=== PATIENT | female | born 1985 | race Caucasian/White ===

== ENCOUNTER → 2017-10-07 | Outpatient (CLI) | payer MEDICAID, SELFPAY | PROVIDERS: Visit Provider Nurse Practitioner Obstetrics & Gynecology | DX: O26.841 Uterine size-date discrepancy, first trimester (principal) | CPT/HCPCS: 76817 ==

== ENCOUNTER → 2017-12-17 14:46 | Outpatient (CLI) | payer MEDICAID, SELFPAY ==
--- NOTE | 2017-12-17 14:51 | US_ITS ---
US OB /maternal detail: INDICATION: ITS.REASON: 20WK+ ANATOMY SCAN-OB COMPLETE ORDERING PHYSICIAN: Kayode Bernal MD PATIENT AGE: 32 years TECHNIQUE: ultrasound transabdominal scanning. COMPARISON: No previous relevant studies. FINDINGS: Single viable intrauterine gestation. started in breech but moved to cephalic position. Placenta: Posterior placenta grade 1. There is adequate amount fluid. The cervix appears satisfactory. Closed and measuring 3 cm in length. Complete survey performed and was unremarkable on the submitted images as in PACS. No discrete anomalies identified on survey imaging by technologist. Active fetus. Three-vessel cord with satisfactory umbilical cord insertion. 4- chamber heart noted. Survey of brain & ventricles. Face and neck survey unremarkable. Diaphragm and chest views unremarkable. Abdomen: Both kidneys noted and unremarkable. Stomach noted and satisfactory. Spine: Survey of the spine satisfactory with no anomalies identified nor imaged. The spine is not well demonstrated due to patient body habitus and the location. Recommend repeating exam in 2-3 weeks to see if this finding can be better imaged Both arms and legs noted. Amniotic Fluid: Adequate. Maternal adnexa: No significant findings. Measurements: Average ultrasound age 21w4d. Gestational Age 20w3d. Estimated due date by ultrasound age 0704/25/2018. Estimated weight 439 grams. This is 96 percentile based on last menstrual period. BPD = 21w4d OFD = 22w1d HC = 21w1d AC = 21w5d FL = 21w6d Heart Rate = 150 bpm Cerebellum = not obtained Humerus = 23w1d HC/AC is 1.13 ( 1.09-1.26). CI is 76% (70-86%). FL/BPD is 72%. FL/AC is 22%. IMPRESSION: IMPRESSION: Live intrauterine gestation with average ultrasound age of 21 weeks 4 days. Estimated due date by ultrasound is 04/25/2018 No obvious anomalies however, the spine is not well delineated. Recommend patient return in 2-3 weeks for repeat imaging. Please see above for detail
== END ==
PROVIDERS: PCP Physician Assistant; Visit Provider Nurse Practitioner Obstetrics & Gynecology
DX: Z36.0 Encounter for antenatal screening for chromosomal anomalies (principal)
CPT/HCPCS: 76811

== ENCOUNTER → 2018-01-14 12:52 | Outpatient (CLI) | payer MEDICAID, SELFPAY ==
--- NOTE | 2018-01-14 12:55 | US_ITS ---
US OB /maternal detail: INDICATION: ITS.REASON: US OB Complete ORDERING PHYSICIAN: Kayode Bernal MD PATIENT AGE: 32 years TECHNIQUE: ultrasound transabdominal scanning/. mw COMPARISON: Recent ultrasound 12/17/2017 w/ ultrasound age 21 week 4 day on that scan FINDINGS: Single viable intrauterine gestation. Breech position Currently. Placenta: Anterior and wraps laterally towards posterior wall. Placenta grade 1. There is adequate amount fluid. The cervix appears long closed satisfactory measuring up to nearly 5 cm in length. Complete additionally detailed survey imaging performed and was unremarkable on the submitted images as in PACS. No discrete anomalies identified on additional detail survey imaging by technologist. Active fetus.Three-vessel cord with satisfactory umbilical cord insertion. Survey of brain & ventricles. In posterior fossa unremarkable Face and neck survey unremarkable. Nasion intact Diaphragm and chest views unremarkable. 4- chamber heart imaged. Additional cardiac Cine loop included. LVOT specifically imaged as well Additional imaging of the spine was performed and these obtained images unremarkable. Abdomen: Both kidneys noted and unremarkable. Stomach noted and satisfactory. Spine: Survey of the spine satisfactory with no anomalies identified nor imaged. Both arms and legs noted. Appear to be a male fetus Amniotic Fluid: Adequate.Maternal adnexa: No significant findings encountered. Measurements: Average ultrasound age 25 weeks 6 day. Gestational Age 24 week 3 day. Based on LMP of 07/27/2017 Estimated due date by ultrasound age 704/23/2018. Estimated weight 852 grams. +/- 124g BPD = 25 week 3 day OFD = 26 week 5 day HC = 25 weeks 6 day AC = 25 weeks 6 day FL = 25 week 6 day Heart Rate = 153 BPM Cerebellum = 24 week 5 day Humerus = 25 week 3 day HC/AC = 1.11.(1.09-1.26.) CI = 73%.(70-86%). FL/BPD is 75%. FL/AC is 22%. IMPRESSION: 25 weeks 6 day average ultrasound age Breech Position. Anterior placenta, with lateral wrap extending posteriorly .Active fetus Anatomical survey of unremarkable & WNL Appropriate progression of growth
== END ==
PROVIDERS: PCP Physician Assistant; Visit Provider Nurse Practitioner Obstetrics & Gynecology
DX: Z36.0 Encounter for antenatal screening for chromosomal anomalies (principal)
CPT/HCPCS: 76811

== ENCOUNTER 2018-02-26 12:02 | Outpatient (CLI) | payer MEDICAID, SELFPAY ==
[2018-02-26 12:22] VITALS: BP 142/81; PULSE 90; RESP 18; TEMP 36.6; O2SAT 97; BMI 40.4
== END 2018-02-26 14:48 | disposition home or self-care (01) ==
LOC: OBOUT 12:03 → OB 12:03
PROVIDERS: PCP Nurse Practitioner Family; Visit Provider Nurse Practitioner Obstetrics & Gynecology
DX: O60.03 Preterm labor without delivery, third trimester (principal); Z3A.30 30 weeks gestation of pregnancy
CPT/HCPCS: 59025; 96360; 96361; 96372

== ENCOUNTER 2018-02-27 12:07 | Outpatient (CLI) | payer MEDICAID, SELFPAY ==
[2018-02-27 12:30] VITALS: BP 119/66; PULSE 90; RESP 18; TEMP 36.7; O2SAT 100; BMI 37.6
== END 2018-02-27 12:47 | disposition home or self-care (01) ==
LOC: OBOUT 12:08 → OB 12:09
PROVIDERS: PCP Nurse Practitioner Family; Visit Provider Nurse Practitioner Obstetrics & Gynecology
DX: Z34.90 Encounter for supervision of normal pregnancy, unspecified, unspecified trimester (principal); O47.00 False labor before 37 completed weeks of gestation, unspecified trimester
CPT/HCPCS: 96372

== ENCOUNTER 2018-03-07 17:25 | Outpatient (CLI) | payer MEDICAID, SELFPAY ==
[2018-03-07 17:38] VITALS: BMI 37.8
[2018-03-07 17:52] LABS: Microscopic, Urine URINE MICROSCOPIC (MICROSCOPIC)
[2018-03-07 17:54] LABS: Appearance,Urine CLOUDY (Clear); Bilirubin,Urine Negative (Negative); Blood, Urine Negative (Negative); Color,Urine YELLOW (Yellow); Glucose,Urine (UA) Negative (Negative); Ketones,Urine Negative (Negative); Leukocyte Esterase,Urine TRACE (Negative); Nitrate,Urine Negative (Negative); PH,Urine 5.5 (5.0-8.5); Protein,Urine Negative (Negative); Specific Gravity, Urine >= 1.030 (1.005-1.030)
[2018-03-07 18:00] VITALS: BP 119/76; PULSE 95; RESP 20; TEMP 36.7; O2SAT 97; BMI 37.8
[2018-03-07 18:02] LABS: Bacteria,Urine 4+ /lpf; Mucus,Urine 4+ /lpf; WBC,Urine 20-50 #/hpf (0-3)
[2018-03-07 18:12] LABS: Fetal Membrane Rupture (Rapid) Negative (Negative)
== END 2018-03-07 22:15 | disposition home or self-care (01) ==
LOC: OBOUT 17:27 → OB 17:27
PROVIDERS: PCP Nurse Practitioner Family; Visit Provider Obstetrics & Gynecology
DX: O26.893 Other specified pregnancy related conditions, third trimester (principal); Z3A.31 31 weeks gestation of pregnancy; R10.9 Unspecified abdominal pain
CPT/HCPCS: 59025; 81001; 84112; 87086; 96360; 96367; 96372; J0290

== ENCOUNTER → 2018-03-11 10:10 | Outpatient (CLI) | payer MEDICAID, SELFPAY ==
--- NOTE | 2018-03-11 10:12 | US_ITS ---
US OB biophysical profile: Umbilical artery S/D ratio, umbilical artery Doppler Indication: Large for gestational age ITS.REASON: US OB- LGA ORDERING PHYSICIAN: Eli Nieto MD PATIENT AGE: 32 years FINDINGS: There is a single live fetus present in the cephalic presentation. The following parameters are obtained: Average ultrasound age is 33w4d. Estimated due date by ultrasound is 04/25/2018. Estimated weight is 2275g. This is 82nd percentile based on last menstrual period BPD: 33w0d OFD: 32w1d HC: 32w3d AC: 33w6d FL: 34w5d heart rate: 133 bpm. HC/AC: 0.98 ( 0.96-1.17) Cephalic index: 79% (70-86%) FL/BPD: 82% (71-87%) FL/AC: 23% (20-24%) Amniotic fluid index: 17 cm Qualitative AFV: 2 breathing movements: 2 Gross body movements: 2 Tone: 2 Biophysical profile score: 8/8 Doppler evaluation of the umbilical artery: SD ratio: 2.6 Resistive index: 0.61 No obvious anomalies evident. Placenta: Posterior and fundal, grade 1 Cervix: Appears closed and measures 4 cm IMPRESSION: Single live intrauterine gestation with an average ultrasound age of 33 weeks 4 days. Estimated weight is 2275 g which is 82nd percentile. Biophysical profile 8 of 8 Unremarkable Doppler evaluation of the umbilical artery
== END ==
PROVIDERS: PCP Nurse Practitioner Family; Visit Provider Obstetrics & Gynecology
DX: O36.63X0 Maternal care for excessive fetal growth, third trimester, not applicable or unspecified (principal)
CPT/HCPCS: 76819

== ENCOUNTER 2018-03-15 17:32 | Outpatient (CLI) | payer MEDICAID, SELFPAY ==
[2018-03-15 17:39] VITALS: BP 105/63; PULSE 77; RESP 18; TEMP 36.7; O2SAT 99; BMI 41.2
[2018-03-15 17:48] LABS: Appearance,Urine SL CLOUDY (Clear); Bilirubin,Urine Negative (Negative); Blood, Urine Negative (Negative); Color,Urine YELLOW (Yellow); Glucose,Urine (UA) Negative (Negative); Ketones,Urine Negative (Negative); Leukocyte Esterase,Urine Negative (Negative); Microscopic, Urine URINE MICROSCOPIC (MICROSCOPIC); Nitrate,Urine Negative (Negative); Protein,Urine Negative (Negative); Specific Gravity, Urine >= 1.030 (1.005-1.030); Urobilinogen,Urine 0.2 EU/dl (0.2)
[2018-03-15 17:54] LABS: Amorphous Sediment,Urine Trace /lpf; Mucus,Urine 4+ /lpf
== END 2018-03-15 20:20 | disposition home or self-care (01) ==
LOC: OBOUT 17:34 → OB 17:35
PROVIDERS: PCP Nurse Practitioner Obstetrics & Gynecology; Visit Provider Obstetrics & Gynecology
DX: O47.03 False labor before 37 completed weeks of gestation, third trimester (principal); Z3A.30 30 weeks gestation of pregnancy
CPT/HCPCS: 59025; 81001; 87086; 96360

== ENCOUNTER 2018-03-28 12:08 | Outpatient (CLI) | payer MEDICAID, SELFPAY ==
[2018-03-28 12:21] VITALS: BMI 41.3
[2018-03-28 12:34] VITALS: BP 126/78; PULSE 70; RESP 18; TEMP 36.6; O2SAT 99; BMI 41.3
[2018-03-28 12:41] LABS: Microscopic, Urine URINE MICROSCOPIC (MICROSCOPIC)
[2018-03-28 12:42] LABS: Appearance,Urine SL CLOUDY (Clear); Bilirubin,Urine Negative (Negative); Blood, Urine Negative (Negative); Color,Urine YELLOW (Yellow); Glucose,Urine (UA) Negative (Negative); Ketones,Urine Negative (Negative); Leukocyte Esterase,Urine TRACE (Negative); Nitrate,Urine Negative (Negative); Protein,Urine Negative (Negative); Specific Gravity, Urine >= 1.030 (1.005-1.030)
[2018-03-28 13:15] LABS: Bacteria,Urine Trace /lpf; RBC,Urine Occasional #/hpf (0-3); Squamous Epithelial Cell,Urine Occasional #/hpf (0-5)
== END 2018-03-28 13:15 | disposition home or self-care (01) ==
LOC: OBOUT 12:09 → OB 12:09
PROVIDERS: PCP Nurse Practitioner Family; Visit Provider Nurse Practitioner Obstetrics & Gynecology
DX: O60.03 Preterm labor without delivery, third trimester (principal); Z3A.35 35 weeks gestation of pregnancy
CPT/HCPCS: 59025; 81001

== ENCOUNTER → 2018-03-30 15:00 | Outpatient (REF) | payer MEDICAID, SELFPAY | LOC: LAB 15:00 | PROVIDERS: Visit Provider Nurse Practitioner Obstetrics & Gynecology | DX: Z34.90 Encounter for supervision of normal pregnancy, unspecified, unspecified trimester (principal); Z3A.35 35 weeks gestation of pregnancy | CPT/HCPCS: 86403 ==

== ENCOUNTER 2018-04-08 15:32 | Outpatient (CLI) | payer MEDICAID, SELFPAY ==
[2018-04-08 15:41] VITALS: BP 127/70; PULSE 71; RESP 18; TEMP 36.8; O2SAT 100; BMI 42.3
== END 2018-04-08 17:10 | disposition home or self-care (01) ==
LOC: OBOUT 15:33 → OB 15:34
PROVIDERS: PCP Nurse Practitioner Family; Visit Provider Nurse Practitioner Obstetrics & Gynecology
DX: O26.893 Other specified pregnancy related conditions, third trimester (principal); Z3A.36 36 weeks gestation of pregnancy; R10.30 Lower abdominal pain, unspecified; M54.5 Low back pain
CPT/HCPCS: 59025; 96360; 96372

== ENCOUNTER 2018-04-18 15:07 | Outpatient (CLI) | payer MEDICAID, SELFPAY ==
[2018-04-18 15:24] VITALS: BMI 42.2
[2018-04-18 15:27] VITALS: BP 135/89; PULSE 107; RESP 18; TEMP 36.7; O2SAT 97; BMI 42.2
[2018-04-18 16:02] LABS: Microscopic, Urine URINE MICROSCOPIC (MICROSCOPIC)
[2018-04-18 16:03] LABS: Appearance,Urine CLOUDY (Clear); Bilirubin,Urine Negative (Negative); Blood, Urine Negative (Negative); Color,Urine YELLOW (Yellow); Glucose,Urine (UA) Negative (Negative); Ketones,Urine Negative (Negative); Leukocyte Esterase,Urine TRACE (Negative); Nitrate,Urine Negative (Negative); Protein,Urine Negative (Negative); Specific Gravity, Urine 1.025 (1.005-1.030)
[2018-04-18 16:16] LABS: Bacteria,Urine 3+ /lpf; Mucus,Urine 2+ /lpf
== END 2018-04-18 17:17 | disposition home or self-care (01) ==
LOC: OBOUT 15:09 → OB 15:12
PROVIDERS: Visit Provider Obstetrics & Gynecology
DX: Z34.90 Encounter for supervision of normal pregnancy, unspecified, unspecified trimester (principal)
CPT/HCPCS: 59025; 81001; 87086

== ENCOUNTER 2018-04-20 05:41 | Inpatient (IN) ==
[2018-04-20 06:48] LABS: Basophils % 0.4 % (0.1-2.0); Eosinophils # 0.2 K/mm3 (0.0-0.4); Eosinophils % 1.8 % (0.1-12.0); Hematocrit 34.9 % (37.0-47.0); Hemoglobin 11.3 g/dL (12.2-16.2); Lymphocytes # 2.3 K/mm3 (0.7-4.5); Lymphocytes % 25.1 K/mm3 (10-50); Mean Corpuscular HGB Conc 32.4 g/dL (31.8-35.4); Mean Corpuscular Hemoglobin 27.2 pg (27.0-31.2); Mean Corpuscular Volume 84.1 fl (81-99); Mean Platelet Volume 10.1 fl (7.4-10.4); Monocytes # 0.7 K/mm3 (0.1-1.0); Neutrophils % 64.6 % (37.0-80.0); Platelet Count 244 K/mm3 (142-424); Red Blood Count 4.16 M/mm3 (4.20-5.40); Red Cell Distribution Width 15.1 % (11.5-17.5); White Blood Count 9.2 K/mm3 (4.8-10.8)
--- NOTE | 2018-04-20 09:10 | Procedure Note ---
- Delivery Note Delivery Date:: 04/20/18 Delivery Time:: 09:00 Was labor medically induced?: Yes Induction method: per pitocin protocol Infant delivered prior to 39 weeks?: Yes Justification for early elective delivery:: Gestational Hypertension, Pre- eclampsia Gender: Male at 1 minute: 9 at 5 minutes: 9 Delivery Procedure:: She is a 32-year-old 4 para 3 who is 38+ weeks gestational age. She was been followed for increased blood pressure and as result of that was brought in for induction of labor at term. The graft she started on IV oxytocin and rupture membranes on her own. She rapidly progressed to full dilation and delivered spontaneously a liveborn male child at 9 AM morning of April 20, 2018. On deliver the head there was a loose nuchal cord which was easily reduced. This is followed by the anterior shoulder and the rest of the infant' s body atraumatically. The baby cried spontaneously and the oropharynx and nasopharynx were bulb suctioned. We allowed to continue to pulsate for approximately 1 minute. The cord was then doubly clamped and cut. The baby was then placed on the mother's abdomen for further care. The nurses assigned Apgars of 9 at 1 minute and 9 at 5 minutes. We then obtained cord bloods. Using gentle traction on the cord and countertraction on the fundus I was able to easily deliver the placenta intact. There were no perineal or vaginal lacerations. Her estimated blood loss was approximately 400 cc. Laceration:: vaginal Placental Delivery Description: Spontaneous
[2018-04-20 16:58] LABS: Albumin Level 2.2 gm/dL (3.4-5.0); Albumin/Globulin Ratio 0.6 (1.1-1.8); Anion Gap 11.7 mEq/L (5-15); Bilirubin,Total 0.2 mg/dL (0.2-1.0); Calcium 8.3 mg/dL (8.5-10.1); Potassium 3.7 mmoL/L (3.5-5.1); Total Protein,Serum 6.2 gm/dL (6.4-8.2); Uric Acid 4.2 mg/dL (2.6-7.2)
--- NOTE | 2018-04-20 17:39 | History & Physical Report ---
OB - H&P: HPI Antepartum - History of Present Illness Chief complaint: Increased blood pressure, term History of present illness: She is a 32-year-old 4 para 3 who is 38+ weeks gestational age. She was seen with increased blood pressure in the office. As result that she was offered induction of labor at term. She is also been having labor. - History of Present Criteria for establishing EDC:: LMP confirmed by 1st trimester US care: good care Ultrasounds: normal 1st trimester US, normal mid trimester US Obstetrical complications: preeclampsia Medical complications: none [facility] History I have reviewed the patient's past medical history: Yes Medical History: Reports:: Asthma Denies:: Anxiety, Depression, Diabetes Mellitus Type 1 Other Surgeries: Yes: Sinus Surgery, Other. No: Amputation: No Fractures: No - *Social History Smoking Status: Never smoker Alcohol Intake: never Substance Use Type: denies use Occupational Status: unemployed Housing: house Household Members: spouse - Psychiatric History Pschychiatric History:: Denies:: Anxiety, Depression *Family Hx:: Coronary Artery Disease, Diabetes, Hyperlipidemia, Hypertension Para: 3 Review of Systems - Review of Systems Review of systems:: pertinent systems reviewed and negative unless documented below Meds Home Medications Medication Instructions Recorded Confirmed Type Ferrous Sulfate [Feosol] 325 mg PO DAILY 04/20/18 04/20/18 History Magnesium Oxide 1,000 mg PO DAILY 04/20/18 04/20/18 History NIFEdipine [Nifedipine] 20 mg PO QID 04/20/18 04/20/18 History Allergies Allergy/AdvReac Type Severity Reaction Status Date / Time No Known Allergies Allergy Verified 04/16/18 16:12 OB - H&P: Exam - Physical Exam Vital signs: Temp Pulse Resp BP Pulse Ox 98.2 F 78 18 155/83 99 04/20/18 17:00 04/20/18 17:00 04/20/18 17:00 04/20/18 17:00 04/20/18 17:00 - Constitutional no acute distress - Routine HEENT Exam Head: Present: normocephalic OB - Results - Labs Labs: Short CBC 04/20/18 Range/Units 06:35 WBC 9.2 (4.8-10.8) K/mm3 Hgb 11.3 L (12.2-16.2) g/dL Hct 34.9 L (37.0-47.0) % Plt Count 244 (142-424) K/mm3 BMP 04/20/18 16:28 Sodium 139 Potassium 3.7 Chloride 107 Carbon Dioxide 24 BUN 7 Creatinine 0.80 Glucose 93 Calcium 8.3 L Liver Function 04/20/18 Range/Units 16:28 Total Bilirubin 0.2 (0.2-1.0) mg/dL AST 14 L (15-37) U/L ALT 11 L (12-78) U/L Alkaline Phosphatase 103 (46-116) U/L Albumin 2.2 L (3.4-5.0) gm/dL OB - A/P Antepartum (1) induced hypertension Current visit: Yes Status: Acute - Additional Plan Planning to breastfeed?: Yes Plan: induction Additional Information:: She is term with increased blood pressure. We will go ahead and deliver her.
[2018-04-21 06:42] LABS: Hematocrit 29.9 % (37.0-47.0); Hemoglobin 9.6 g/dL (12.2-16.2)
--- NOTE | 2018-04-21 08:06 | Progress Note ---
Internal Medicine - PN: Subj *Date: 04/21/18 *Time: 08:05 Interval history: She is doing better this morning. She has been on magnesium sulfate since last night. Her blood pressures have stabilized. We will continue with the magnesium sulfate for 24 hours. Exam Vital signs and Labs for Last 24 Hours: Temp Pulse Resp BP Pulse Ox 98.2 F 78 18 155/83 99 04/20/18 17:00 04/20/18 17:00 04/20/18 17:00 04/20/18 17:00 04/20/18 17:00 Laboratory Results - last 24 hr 04/20/18 16:28: Sodium 139, Potassium 3.7, Chloride 107, Carbon Dioxide 24, Anion Gap 11.7, BUN 7, Creatinine 0.80, Estimated Creat Clear 70, Estimated GFR 84, Est GFR ( Amer) 102, Glucose 93, Uric Acid 4.2, Calcium 8.3 L, Total Bilirubin 0.2, AST 14 L, ALT 11 L, Alkaline Phosphatase 103, Total Protein 6.2 L , Albumin 2.2 L, Globulin 4.0 H, Albumin/Globulin Ratio 0.6 L 04/20/18 16:28: Magnesium 1.6 04/21/18 06:01: Magnesium 4.0 H D 04/21/18 06:01: Hgb 9.6 L D, Hct 29.9 L I & O for Last 24 hours: Intake & Output 04/18/18 04/19/18 04/20/18 04/21/18 11:59 11:59 11:59 11:59 Output Total 1100 / 1100 Balance -1100 / -1100 Weight 216 lb 0.002 oz - Constitutional no acute distress Assessment and Plan (1) induced hypertension Current visit: Yes Status: Acute Category: Medical Code(s): O13.9 - Gestational [-induced] hypertension without significant proteinuria, unspecified trimester - Assessment and plan all Dx Assessment and Plan for all problems:: She is doing well this morning. Her blood pressures have stabilized on magnesium sulfate. We will continue this for 24 hours. If her blood pressures remain elevated then we will consider starting labetalol before she goes home. We will plan to stop the magnesium sulfate later this afternoon. She is doing well we will consider sending her home tomorrow.
--- NOTE | 2018-04-22 08:17 | Discharge Summary ---
General - General Admission date:: 04/20/18 Discharge date: 04/22/18 HPI HPI: She is a 32-year-old 4 now para 4 who was 38+ weeks gestational age. She was seen in the office and had increased blood pressure and as result of that was brought in for induction of labor. Hospital Course Hospital Course: She was started on IV oxytocin and spontaneously rupture membranes. She progressed to full dilation and delivered spontaneously a liveborn male child at 9:00 in the morning of by the 2017. The baby weighed 8 lbs. 7 oz. and was 20 inches long. He had Apgars of 9 at 1 minute and 9 at 5 minutes. She has done well and has remained afebrile throughout her hospitalization. She does have some elevation in her blood pressure slightly after her delivery and as result of that she received IV magnesium sulfate for 24 hours. She has B+ blood, she is rubella immune and was group B Streptococcus positive. She did receive IV antibiotics while in labor. Her blood pressures have now stabilized and this morning it was 125/71. We will follow-up with her in a week to check on her blood pressures. He was given iron. She will take [id number] analgesics. She was given the usual instructions with respect to limiting her activity, driving and sexual activity. She would like a tubal ligation. Objective Vital signs: Temp Pulse Resp BP Pulse Ox 97.7 F 86 18 136/77 98 04/21/18 08:10 04/21/18 16:20 04/21/18 08:10 04/21/18 16:20 04/21/18 08:10 no acute distress DS: Diagnosis - Discharge Diagnosis (1) induced hypertension Status: Acute Discharge Plan - Patient Discharge Instructions ACTIVITY: No heavy lifting DIET: continue same diet Patient Instructions: Depression, Hemorrhage, Post Discharge Instructions - Follow up Plan Disposition: Home, Self-Custodial Medications: Home Medications Medication Instructions Recorded Confirmed Type Ferrous Sulfate [Feosol] 325 mg PO DAILY 04/20/18 04/20/18 History Magnesium Oxide 1,000 mg PO DAILY 04/20/18 04/20/18 History NIFEdipine [Nifedipine] 20 mg PO QID 04/20/18 04/20/18 History Prescriptions/Medication Reconciliation: Continue Ferrous Sulfate [Feosol] 325 mg PO DAILY NIFEdipine [Nifedipine] 20 mg PO QID Magnesium Oxide 1,000 mg PO DAILY
[2018-04-22 09:28] VITALS: BP 127/71
== END 2018-04-22 10:15 | disposition home or self-care (01) ==
LOC: OB 05:41
PROVIDERS: ADMIT Obstetrics & Gynecology; ATTEND Nurse Practitioner Obstetrics & Gynecology

== ENCOUNTER → 2018-06-02 11:43 | Outpatient (CLI) | payer MEDICAID, SELFPAY ==
[2018-06-02 12:15] LABS: Basophils # 0.1 K/mm3 (0-0.2); Basophils % 0.6 % (0.1-2.0); Eosinophils # 0.3 K/mm3 (0.0-0.4); Eosinophils % 3.5 % (0.1-12.0); Hematocrit 35.1 % (37.0-47.0); Hemoglobin 11.2 g/dL (12.2-16.2); Lymphocytes % 21.9 K/mm3 (10-50); Mean Corpuscular Hemoglobin 26.3 pg (27.0-31.2); Mean Corpuscular Volume 82.3 fl (81-99); Mean Platelet Volume 8.6 fl (7.4-10.4); Monocytes # 0.6 K/mm3 (0.1-1.0); Monocytes % 6.3 % (1.7-9.3); Neutrophils # 6.2 K/mm3 (1.8-7.8); Neutrophils % 67.7 % (37.0-80.0); Platelet Count 352 K/mm3 (142-424); Red Blood Count 4.27 M/mm3 (4.20-5.40); Red Cell Distribution Width 14.4 % (11.5-17.5); White Blood Count 9.1 K/mm3 (4.8-10.8)
[2018-06-02 13:02] LABS: Anion Gap 12.4 mEq/L (5-15); Blood Urea Nitrogen 11 mg/dL (7-18); Calcium 9.1 mg/dL (8.5-10.1); Carbon Dioxide 27 mmol/L (21.0-32.0); Chloride 104 mmol/L (98-107); Creatinine,Serum 0.96 mg/dL (0.55-1.02); Estimated Glomerular Filt Rate 68 ml/min (>60); GFR (African American) 83 ML/MIN (>60); Glucose 105 mg/dL (74-106); Potassium 4.4 mmoL/L (3.5-5.1); Sodium 139 mmol/L (136-145)
[2018-06-02 17:18] LABS: HCG Qualitative, Serum Negative (Negative)
== END ==
PROVIDERS: Visit Provider Nurse Practitioner Obstetrics & Gynecology
DX: Z01.818 Encounter for other preprocedural examination (principal)
CPT/HCPCS: 36415; 80048; 84703; 85025